=== PATIENT | male | born 1940 | race Caucasian/White ===

== ENCOUNTER 2018-12-24 15:19 | Outpatient (RCR) | payer MEDICARE, SELFPAY ==
[2018-12-24 14:23] VITALS: BMI 33.0
[2018-12-24 16:24] LABS: International Normalized Ratio 2.3; Prothrombin Time (Protime)PT. 24.9 SECONDS (11.7-14.9)
== END 2018-12-24 16:19 | disposition home or self-care (01) ==
LOC: LAB 15:19
PROVIDERS: Family Provider Preventive Medicine Occupational Medicine; PCP Preventive Medicine Occupational Medicine; Referring Provider Internal Medicine Cardiovascular Disease; Visit Provider Internal Medicine Cardiovascular Disease
DX: I48.0 Paroxysmal atrial fibrillation (principal); Z79.01 Long term (current) use of anticoagulants
CPT/HCPCS: 36415; 85610

== ENCOUNTER → 2019-01-03 12:30 | Outpatient (CLI) | payer MEDICARE, SELFPAY ==
[2018-12-24 14:23] VITALS: BMI 33.0
--- NOTE | 2019-01-03 12:31 | ECHOCS_ITS ---
Reason For Study: AFIB/FLUTTER Procedure This was a 2D Doppler, Color Flow transthoracic echocardiogram. The study was technically difficult. Contrast injection was performed. Exam performed in department. Left Ventricle Normal size and thickness. The estimated ejection fraction is 60 %. Unable to assess diastolic dysfunction due to arrhythmia. No regional wall motion abnormalities noted. Right Ventricle Normal size and thickness. Normal systolic function. Atria The left atrium is moderately enlarged. The right atrium is moderately enlarged. Normal atrial septum. Mitral Valve The mitral valve is structurally normal. No prolapse or stenosis seen. Trivial mitral valve insufficiency. Tricuspid Valve Normal tricuspid valve. Mild (1+) tricuspid valve insufficiency. Right ventricular systolic pressure estimated to be 52 mmHg. Moderate pulmonary hypertension. Aortic Valve Trisinus/trileaflet aortic valve. Mild diffuse aortic valve thickening. There is no aortic stenosis. Pulmonic Valve The pulmonic valve is not well visualized. Great Vessels Normal aortic root. Normal arch. Normal inferior vena cava. Inferior vena cava collapse with sniff. Pericardium/Pleural No pericardial effusion. Medication 22 gauge I.V. with prn adaptor inserted into right arm. Diluted definity 3ml given slow IV push to enhance endocardial definition. MMode/2D Measurements & Calculations LVIDd: 3.6 cm IVSd: 0.83 cm Ao root diam: 3.5 cm LVIDs: 2.6 cm LVPWd: 0.90 cm RVDd: 3.3 cm FS: 28.5 % LAV(MOD-bp): 83.7 ml LVAd ap4: 26.8 cm2 SV(MOD-sp4): 42.5 ml LAV(MOD-bp) Indexed: 36.8 ml/m2 EDV(MOD-sp4): 76.7 ml LAV(MOD-sp2): 74.7 ml EDV(sp4-el): 79.5 ml LAV(MOD-sp4): 89.1 ml LVAs ap4: 16.7 cm2 ESV(MOD-sp4): 34.2 ml ESV(sp4-el): 34.8 ml EF(MOD-sp4): 55.4 % EF(sp4-el): 56.3 % SV(sp4-el): 44.7 ml LA A4 area: 25.9 cm2 LA dimension(2D): 4.7 cm RA A4 area: 24.5 cm2 Doppler Measurements & Calculations Ao V2 max: 108.1 cm/sec LV V1 max: 82.5 cm/sec TR max brandy: 283.1 cm/sec Ao max P.7 mmHg LV V1 max P.7 mmHg TR max P.2 mmHg Interpretation Summary The estimated ejection fraction is 60 %. Unable to assess diastolic dysfunction due to arrhythmia. The left atrium is moderately enlarged. The right atrium is moderately enlarged. Trivial mitral valve insufficiency. Mild (1+) tricuspid valve insufficiency. Right ventricular systolic pressure estimated to be 52 mmHg. Moderate pulmonary hypertension. Compared to echo report dated 12/12/2013, LV function has remained the same. RVSP has increased from 32 to 52 mm Hg. Pt now appears to be in atrial flutter. The study was technically difficult. Contrast injection was performed. Ordering Physician: Kenyon Oreilly Referring Physician: JET DAMON Performed By: Brea Gonzales, HILLARY, RVT
== END ==
PROVIDERS: Family Provider Preventive Medicine Occupational Medicine; PCP Preventive Medicine Occupational Medicine; Referring Provider Internal Medicine Cardiovascular Disease; Visit Provider Internal Medicine Cardiovascular Disease
DX: I48.0 Paroxysmal atrial fibrillation (principal); I10 Essential (primary) hypertension; E78.5 Hyperlipidemia, unspecified; Z79.01 Long term (current) use of anticoagulants
CPT/HCPCS: 93306; Q9957; A4216; C8929

== ENCOUNTER → 2019-01-08 10:00 | Outpatient (CLI) | payer MEDICARE, SELFPAY ==
[2018-12-24 14:23] VITALS: BMI 33.0
--- NOTE | 2019-01-08 10:00 | STEWCON_ITS ---
Reason For Study: Atrial Fibrillation Stress Results Protocol: Dobutamine Stress Echo Maximum Predicted HR: 141 bpm Target HR: 120 bpm % Maximum Predicted HR: 99 % DurationHeart Rate Stage (mm:ss) (bpm) BP Comment Baseline 104 138/89No Chest Pain; Diluted Definity 4 ML Given DSE 10 MCG 3:15 109 118/77No Chest Pain DSE 20 MCG 1:47 139 120/68No Chest Pain Recovery 99 140/71No Chest Pain Stress Duration: 5:02 mm:ss Maximum Stress HR: 139 bpm METS: 1 Baseline Echocardiogram Findings The estimated ejection fraction is 65 %. Stress Echo Wall motion Data Resting WM Intermediate WM Stress WM Resting Wall Motion Wall Motion Stress No regional wall motion No regional wall motion abnormalities noted. abnormalities noted. EKG Data Atrial flutter with CVR. The patient was titrated from 10 mcg to a maximun of 30 mcg of dobutamine during the stress. The maximum heart rate attained was 142 beats per minute. This was 100% of maximum predicted heart rate. During dobutamine infusion, there were no ST or T wave changes noted to suggest ischemia. No clinical angina was noted. Interpretation Summary The estimated ejection fraction is 65 %. Normal, adequate, dobutamine echocardiogram. Negative for ischemia by EKG and echocardiographic criteria. No anginal symptoms noted. Rare PVC noted. Rare slight atrial flutter with controlled ventricular response with adequate chronotropic response to dobutamine. Final LVEF is 75%. Test terminated due to the attainment of target heart rate. Decreased sensitivity due to poor echo windows requiring Definity agent. No complications. The study was technically difficult. Contrast injection was performed. Ordering Physician: Kenyon Oreilly Referring Physician: Paz Rogers M.D. Performed By: Favian Chicas RCS
== END ==
PROVIDERS: Family Provider Preventive Medicine Occupational Medicine; PCP Preventive Medicine Occupational Medicine; Referring Provider Internal Medicine Cardiovascular Disease; Visit Provider Internal Medicine Cardiovascular Disease
DX: R06.02 Shortness of breath (principal); I48.0 Paroxysmal atrial fibrillation; I10 Essential (primary) hypertension; E78.5 Hyperlipidemia, unspecified; Z79.01 Long term (current) use of anticoagulants
CPT/HCPCS: 93017; 93350; J7040; Q9957; A4216; C8928